=== PATIENT | female | born 1995 | race Caucasian/White ===

== ENCOUNTER 2019-10-28 07:12 | Outpatient (CLI) | payer BC, SELFPAY ==
[2019-10-31 23:28] LABS: SARS-CoV-2 RNA Undetected (Undetected); SARS-CoV-2 Specimen Source Nasopharynx
== END 2019-10-28 07:32 ==
PROVIDERS: Visit Provider Internal Medicine
DX: Z20.828 Contact with and (suspected) exposure to other viral communicable diseases (principal)
CPT/HCPCS: U0003

== ENCOUNTER 2020-08-31 13:25 | Outpatient (REF) | payer BC, SELFPAY ==
--- NOTE | 2020-08-31 13:10 | PAPFT_PTH ---
PATIENT: Karime Rust LOC: [facility] U#:[id number] AGE/SX: 25/F ROOM: RE08/31/[address]: JEREMIAS Haywood : 1995 BED: DIS: 08/31/2020 SPEC #: [id number] RECD: 08/31/20 16:31 STATUS: MARISELA REQ #: [id number] RODRIGUEZ: 08/31/20 13:[address]: Sona Luis DEPT: [facility] Cytology RECD BY: Maryann Pendleton ENTERED: 08/31/20 16:32 SP TYPE: PAPFT COMFORT DR: Unknown,Unknown Tissues: 1 - CX/ENDOCX FOR PAP SMEARS Procedures: PAP THIN PREP/UVM Screening Comments: [id number]
[2020-09-03 15:41] LABS: Chlamydia Result Negative (Negative); GC Result Negative (Negative)
== END 2020-08-31 13:26 | disposition home or self-care (01) ==
LOC: LBN 13:25
PROVIDERS: Visit Provider Nurse Practitioner Family
DX: Z11.3 Encounter for screening for infections with a predominantly sexual mode of transmission (principal); Z12.4 Encounter for screening for malignant neoplasm of cervix
CPT/HCPCS: 87491; 87591; 88142

== ENCOUNTER 2020-11-30 20:18 | Outpatient (REF) | payer BC, SELFPAY ==
[2020-12-02 15:39] LABS: COVID-19 RT-PCR UVMMC Result Negative (Negative)
== END 2020-11-30 20:19 | disposition home or self-care (01) ==
LOC: NCHCN 20:18
PROVIDERS: Visit Provider Family Medicine
DX: Z20.822 Contact with and (suspected) exposure to COVID-19 (principal); R06.89 Other abnormalities of breathing
CPT/HCPCS: U0003

== ENCOUNTER 2021-02-03 21:36 | Emergency (ER) | payer BC, SELFPAY ==
[2021-02-03 21:40] VITALS: BP 127/74; PULSE 84; RESP 16; TEMP 36.2; O2SAT 97
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
[2021-02-03 22:27] LABS: *AMPHETAMINES SCREEN URINE Negative (Negative); *BARBITURATES SCREEN URINE Negative (Negative); *BENZODIAZEPINES SCREEN URINE Negative (Negative); Cannabinoids THC Negative (Negative); Cocaine Screen,Urine Negative (Negative); METHADONE URINE SCREEN Negative (Negative); OPIATES URINE SCREEN Negative (Negative)
[2021-02-03 22:28] LABS: Tricyclic Antidepressants Negative (Negative)
[2021-02-03 22:29] LABS: Abs Immature Grans 0.01 10^3/uL (0.0-0.06); Absolute Basophil Count 0.01 10^3/uL (0.0-0.2); Absolute Eosinophil Count 0.04 10^3/uL (0.0-0.7); Absolute Lymphocyte Count 2.46 10^3/uL (1.2-3.4); Absolute Monocyte Count 0.25 10^3/uL (0.1-0.8); Absolute Neutrophil Count 3.32 10^3/uL (1.2-6.7); Basophils % 0.2; Eosinophils % 0.7; HCT 44.3 % (36.0-46.0); HGB 14.7 g/dL (11.2-15.7); Immature Grans % 0.2; Lymphocytes % 40.4; MCH 28.6 pg (27.0-33.0); MCHC 33.2 % (32.0-36.0); MCV 86.2 fL (80-95); MPV 10.2 fL (8.0-11.0); Monocytes % 4.1; Neutrophils % 54.4; Nucleated RBC 0 %; Platelet Count 251 10^3/uL (130-400); RBC 5.14 10^6/uL (3.93-5.22); RDW 11.6 % (11.7-14.6); RDW-SD 36.7 fL; WBC 6.09 10^3/uL (4.4-10.8)
[2021-02-03 22:34] LABS: Source Nasal/Nares
[2021-02-03 22:53] LABS: ALT 22 U/L (14-59); AST 14 U/L (15-37); Alkaline Phosphatase 59 U/L (46-116); Anion Gap 9.6 mmol/L (3-11); BUN 10 mg/dL (7-18); Bilirubin, Total 0.4 mg/dL (0.2-1.0); CO2 26.4 mmol/L (21.0-32.0); CREATININE 0.7 mg/dL (0.55-1.02); Calcium 8.4 mg/dL (8.5-10.1); Chloride 107 mmol/L (98-107); ETHANOL BLOOD 181.1 mg/dL (<10); Glucose 110 mg/dL (74-106); Potassium 3.8 mmol/L (3.5-5.1); Sodium 143 mmol/L (136-145); TSH (W/Ref FT4) 0.61 uIU/mL (0.36-3.74); Total Protein 7.8 g/dL (6.4-8.2)
[2021-02-03 23:00] LABS: Acetaminophen < 2 ug/mL (10-30); Salicylate < 2.8 mg/dL (<2.8)
[2021-02-03 23:14] LABS: COVID-19 PCR Negative (Negative)
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
[2021-02-04] MEDS: QUEtiapine 25 MG TAB PO (00:45)
--- NOTE | 2021-02-04 09:36 | CMSP_ITS ---
- If Service Date Differs Date of service: 02/04/21 Time of Service: 09:36 Care Management Safety Plan Status: Voluntary - Reason for Wait Reason for Wait: Inpatient Admission VOLUNTARY FOR INPATIENT PSYCHIATRIC STABILIZATION. Patient is appropriate in all interactions since arriving at [facility]; Pt has demonstrated appropriate coping and communication skills, has articulated his or her needs and concerns and is fully engaged during staff interactions. Safety plan has been established with patient, and care team, to adhere to patient goals, identify restrictions based on behavioral status, address nut rition, and determine allowed personal belongings, tools for hygiene and personal care. Determine level of activity including ambulation, level of supervision, visitors, and determine privileges based on behaviors and level of engagement by pt. SAFETY PLAN: 1. Will remain on suicide precautions. In Paper Clothes 2. Will remain in room under direct supervision of one-on-one staff at all times provided by CPSO, FRONT END ENGINEER, NEW CAR DRIVER oral and maxillofacial surgeon. 3. May have paper cups, plates, finger foods as well as a cardboard spoon with which to eat meals. 4. Follow [facility] Management of the Admitted Behavioral Health Patient policy. 5. May shower with supervision at RN discretion. 6. No personal belongings. 7. Visitors: Per [facility] Covid Policy and at RN discretion. 8. Activities: Soft cart items, crayons, coloring book, music tablet, television if available, and other activities at RN discretion. 9. Bathroom privileges with escort in the ED; may use bathroom in room on Med/Surg without limitation. 10. Phone: May use hospital phone at RN discretion. 11. Due to VOLUNTARY status, if patient wishes to leave [facility], staff will contact [facility] Crisis Screener ([phone]) and On-Call Port Crane Operator ([phone]) as soon as possible. In the event of elopement, notify [place] [employer] Police ([phone]). Patient is currently voluntarily at [facility] and seeking inpatient admission when a bed becomes available. [facility] Frontline Supervisor Pyrotechnic Loading will continue seeking placement. Please contact the Marine Extension Agent Port Crane Operator ([phone]) and [facility] Supervisor Pyrotechnic Loading ([phone]) for any needed changes in the Safety Plan. Safety plan has been provided to interdepartmental care team.
--- NOTE | 2021-02-04 09:36 | PDOC.CMSAFED ---
- If Service Date Differs Date of service: 02/04/21 Time of Service: 09:36 Care Management Safety Plan Status: Voluntary - Reason for Wait Reason for Wait: Inpatient Admission VOLUNTARY FOR INPATIENT PSYCHIATRIC STABILIZATION. Patient is appropriate in all interactions since arriving at [facility]; Pt has demonstrated appropriate coping and communication skills, has articulated his or her needs and concerns and is fully engaged during staff interactions. Safety plan has been established with patient, and care team, to adhere to patient goals, identify restrictions based on behavioral status, address nutrition, and determine allowed personal belongings, tools for hygiene and personal care. Determine level of activity including ambulation, level of supervision, visitors, and determine privileges based on behaviors and level of engagement by pt. SAFETY PLAN: 1. Will remain on suicide precautions. In Paper Clothes 2. Will remain in room under direct supervision of one-on-one staff at all times provided by [employer]PSO, HEALTHCARE EDUCATOR, ORTHOPEDIC SHOE FITTER senior credit analyst. 3. May have paper cups, plates, finger foods as well as a cardboard spoon with which to eat meals. 4. Follow [facility] Management of the Admitted Behavioral Health Patient policy. 5. May shower with supervision at RN discretion. 6. No personal belongings. 7. Visitors: Per [facility] Covid Policy and at RN discretion. 8. Activities: Soft cart items, crayons, coloring book, music tablet, television if available, and other activities at RN discretion. 9. Bathroom privileges with escort in the ED; may use bathroom in room on Med/Surg without limitation. 10. Phone: May use hospital phone at RN discretion. 11. Due to VOLUNTARY status, if patient wishes to leave [facility], staff will contact [facility] Crisis Screener ([phone]) and On-Call Manuscripts Archivist ([phone]) as soon as possible. In the event of elopement, notify [place] [employer] Police ([phone]). Patient is currently voluntarily at [facility] and seeking inpatient admission when a bed becomes available. [facility] Frontline Herpetology Teacher will continue seeking placement. Please contact the Ply Splicer Manuscripts Archivist ([phone]) and [facility] Herpetology Teacher ([phone]) for any needed changes in the Safety Plan. Safety plan has been provided to interdepartmental care team.
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
[2021-02-04 13:33] VITALS: BP 123/75; PULSE 99; TEMP 37.3; O2SAT 97
[2021-02-04 13:40] VITALS: BP 123/75; PULSE 99; TEMP 37.3; O2SAT 97
== END 2021-02-04 13:37 | disposition other institution (70) ==
PROVIDERS: Physician Assistant; Emergency Provider Physician Assistant
DX: F32.9 Major depressive disorder, single episode, unspecified (principal); R45.851 Suicidal ideations; Z91.52 Personal history of nonsuicidal self-harm; F10.10 Alcohol abuse, uncomplicated
CPT/HCPCS: 36415; 80053; 80307; 81025; 87635; 99285; 80320; 80329; 84443; 85025

== ENCOUNTER 2021-10-17 15:13 | Outpatient (REF) | payer OTHER, BC, SELFPAY ==
[2021-10-17 18:09] LABS: HCT 42.4 % (36.0-46.0); HGB 14.2 g/dL (11.2-15.7); MCH 28.8 pg (27.0-33.0); MCHC 33.5 % (32.0-36.0); MCV 86 fL (80-95); Platelet Count 269 10^3/uL (130-400); RBC 4.93 10^6/uL (3.93-5.22); RDW 11.4 % (11.7-14.6); RDW-SD 35.6 fL
[2021-10-17 18:34] LABS: ALT 26 U/L (14-59); AST 19 U/L (15-37); Albumin 3.9 g/dL (3.4-5.0); Alkaline Phosphatase 65 U/L (46-116); Anion Gap 8.1 mmol/L (3-11); BUN 10 mg/dL (7-18); Bilirubin, Total 0.5 mg/dL (0.2-1.0); CO2 28.9 mmol/L (21.0-32.0); CREATININE 0.7 mg/dL (0.55-1.02); Calcium 8.9 mg/dL (8.5-10.1); Chloride 102 mmol/L (98-107); Glucose 110 mg/dL (74-106); Potassium 4.1 mmol/L (3.5-5.1); Sodium 139 mmol/L (136-145); TSH (W/Ref FT4) 0.91 uIU/mL (0.36-3.74); Total Protein 7.7 g/dL (6.4-8.2)
== END 2021-10-17 15:14 | disposition home or self-care (01) ==
LOC: NCHCN 15:13
PROVIDERS: Visit Provider Nurse Practitioner Family
DX: R53.83 Other fatigue (principal); E61.1 Iron deficiency
CPT/HCPCS: 80053; 85027; 84443

== ENCOUNTER 2023-10-21 16:34 | Outpatient (REF) | payer BC, SELFPAY ==
--- NOTE | 2023-10-21 08:00 | PAPFT_PTH ---
PATIENT: Karime Rust LOC: [facility]#:[id number] AGE/SX: 28/F ROOM: RE10/21/[address]: Alyssa John : 1995 BED: DIS: 10/21/2023 SPEC #: [id number] RECD: 10/21/23 18:27 STATUS: MARISELA CISNEROS #: [id number] RODRIGUEZ: 10/21/23 08:[address]: Alyssa John DEPT: [facility] Cytology RECD BY: Maryann Pendleton Tissues: 1 - CX/ENDOCX FOR PAP SMEARS Procedures: PAP THIN PREP/UVM Screening Comments: [id number] (CHLAMYDIA/GC)
--- OUTSIDE RECORDS SUMMARY | 2023-10-21 16:36 | XMS_ITS | Clinical Summary ---
Author Organization [facility] Address [address] [place] [address] Care Team Providers Care Executive Vp Name Role Phone Unknown, Provider Primary Care Provider Social History Tobacco Use Types Packs/Day Years Used Date Smoking Tobacco: Never Assessed Sex and Gender Information Value Date Recorded Sex Assigned at Not on file Gender Identity Not on file Sexual Orientation Not on file Plan of Treatment Health Maintenance Due Date Last Done Comments Hepatitis C Screen 1995 Hepatitis B Vaccine (1 of 3 - 19+ 3-dose series) 06/14 COVID-19 Vaccine (2022-24 season) 2022 Care Teams Executive Vp Relationship Specialty Start Date End Date Unknown, Provider, PCP - General 10/05/17
--- OUTSIDE RECORDS SUMMARY | 2023-10-21 16:36 | XMS_ITS | Referral Summary ---
Author Organization [facility] Address [address] [place] [id number] Care Team Providers Care Commodity Broker Name Role Phone Unknown, Provider Primary Care Provider Social History Tobacco Use Types Packs/Day Years Used Date Smoking Tobacco: Never Assessed Sex and Gender Information Value Date Recorded Sex Assigned at Not on file Gender Identity Not on file Sexual Orientation Not on file Plan of Treatment Not on file Care Teams Commodity Broker Relationship Specialty Start Date End Date Unknown, Provider, PCP - General 10/05/17
--- OUTSIDE RECORDS SUMMARY | 2023-10-21 16:36 | XMS_ITS | Encounter Summary ---
Author Organization [facility] Address [address] [place] [address] Care Team Providers Care Hat Lining Blocker Name Role Phone Unknown, Provider Primary Care Provider Encounter Details Date Type Department Care Team (Late st Contact Info) Description 12/01/2020 Lab Requisition [facility] Pathology & Laboratory Medicine - [address] [address] Outr Resulting Lab, Provider Social History Tobacco Use Types Packs/Day Years Used Date Smoking Tobacco: Never Assessed Sex and Gender Information Value Date Recorded Sex Assigned at Not on file Gender Identity Not on file Sexual Orientation Not on file documented as of this encounter Plan of Treatment Not on file documented as of this encounter Procedures Procedure Name Priority Date/Time Associated Diagnosis Comments ZZCOVID-19 TEST [facility] PCR Today 11/30/2020 13:40 EDT COVID-19 TESTING Routine 11/30/2020 13:4 0 EDT documented in this encounter Results * COVID-19 TEST [facility] PCR (11/30/2020 13:40 EDT) Swab ENTIRE NASOPHARYNX / Unknown 11/30/2020 13:40 EDT 12/01/2020 21:18 EDT Provider Outr Resulting Lab MICROBIOLOGY - GENERAL ORDERABLES [facility] [address] [place] [address] * COVID-19 TESTING (11/30/2020 13:40 EDT) COVID-19 rt-PCR Result Negative Negative 12/02/2020 15:34 EDT [facility] Comment: This test has not been FDA cleared or approved. This test has been authorized by FDA under an EUA for use by authorized laboratories. This test has been authorized only for detection of nucleic acid from 2019-nCoV, not for any other viruses or pathogens. This test is only authorized for the duration of the declaration that circumstances exist justifying the authorization of emergency use of in vitro diagnostic tests for detection and/or diagnosis of 2019-nCoV under section 564(b)(1) of Act, 21 U.S.C ?? 360bbb-3(b) (1), unless the authorization is terminated or revoked sooner. Negative results do not preclude 2019-nCoV infection and should not be used as the sole basis for treatment or other patient management decisions. Negative results must be combined with clinical observations, patient history, and epidemiological information. This test was developed and its performance characteristics determined by [facility]. It has not been cleared or approved by the US Food and Drug Administration. FDA does not require this test to go through premarket FDA review. This test is used for clinical purposes. It should not be regarded as investigational or for research. This laboratory is certified under the Clinical Laboratory Improvement Amendments (CLIA) as qualified to perform high complexity clinical laboratory testing. This test is based on the CDC COVID-19 Emergency Use Authorization (EUA) assay, with minor modification as defined by the FDA Performed on the [employer]chemy[employer] 7 Pro RT-PCR System. Performing Lab [facility] 12/02/2020 15:34 EDT [facility] Swab 11/30/2020 13:4 0 EDT 12/01/2020 21:18 EDT Provider Outr Resulting Lab MICROBIOLOGY - GENERAL ORDERABLES [facility] [address] [place] [address] documented in this encounter Visit Diagnoses Not on filedocumented in this encounter Care Teams Hat Lining Blocker Relationship Specialty Start Date End Date Unknown, Provider, PCP - General 10/05/17 documented as of this encounter
--- OUTSIDE RECORDS SUMMARY | 2023-10-21 16:36 | XMS_ITS | Encounter Summary ---
Author Organization [facility] Address [address] [place] [address] Care Team Providers Care Metal Stud Framer Name Role Phone Unknown, Provider Primary Care Provider [phone] Encounter Details Date Type Department Care Team (Late st Contact Info) Description 10/05/2017 Results Only [facility] [phone] Sona Luis, [address] [place] [address] Social History Tobacco Use Types Packs/Day Years Used Date Smoking Tobacco: Never Assessed Sex and Gender Information Value Date Recorded Sex Assigned at Not on file Gender Identity Not on file Sexual Orientation Not on file documented as of this encounter Plan of Treatment Not on file documented as of this encounter Procedures Procedure Name Priority Date/Time Associated Diagnosis Comments PAP TEST- RESULT ONLY Routine 10/05/2017 0:00 EDT documented in this encounter Results * PAP TEST- RESULT ONLY (10/05/2017 0:00 EDT) Pathology Report: CYTOPATHOLOGY REPORT Reports generated via electronic interface contain original data; however they are lacking the format of the original report. Caution should be taken when reading/interpreti ng unformatted reports. Name: ? JITENDRA CARDONA ? Accession #: ? [id number] : ? 1995 (Age: 22) ??F ?Collect Date: ? 10/05/2017 Location: ? [facility] ? Receive Date: ? 10/06/2017 Provider: ?SONA LUIS SLIP COVER OPERATOR Copy to: ? Specimen/Source: ?Pap Test, Cervix, ThinPrep Imaging System with manual evaluation Last Menstrual Period: ? 09/07/17 Other: ? First Pap ? SPECIMEN ADEQUACY ? Satisfactory for Evaluation - transformation zone component present GENERAL CATEGORIZATION ? Negative for Intraepithelial Lesion or Malignancy INTERPRETATION ? Shift in cortez present suggestive of bacterial vaginosis. ? Document reviewed and electronically signed by: ? ZACK Paz(ASCP) ? Report Date: ??10/19/2017 12:53 End of Report [facility] 10/05/2017 10/06/2017 Soan Luis SLIP COVER OPERATOR PATHOLOGY ORDERABLES [facility] [address] [place] [address] documented in this encounter Visit Diagnoses Not on filedocumented in this encounter Care Teams Metal Stud Framer Relationship Specialty Start Date End Date Unknown, Provider, PCP - General 10/05/17 documented as of this encounter
--- OUTSIDE RECORDS SUMMARY | 2023-10-21 16:36 | XMS_ITS | Encounter Summary ---
Author Organization [facility] Address [address] [place] [address] Care Team Providers Care Manager Training Name Role Phone Unknown, Provider Primary Care Provider Encounter Details Date Type Department Care Team (Late st Contact Info) Description 09/03/2020 Lab Requisition [facility] Pathology & Laboratory Medicine - [address] [address] Sona Luis, [address] [place] [address] Encounter for other general examination Social History Tobacco Use Types Packs/Day Years Used Date Smoking Tobacco: Never Assessed Sex and Gender Information Value Date Recorded Sex Assigned at Not on file Gender Identity Not on file Sexual Orientation Not on file documented as of this encounter Plan of Treatment Not on file documented as of this encounter Procedures Procedure Name Priority Date/Time Associated Diagnosis Comments PAP TEST Today 08/31/2020 13:10 EDT Encounter for other general examination documented in this encounter Results * PAP TEST (08/31/2020 13:10 EDT) Specimens A. Cervix and/or Endocervix , ThinPrep Imaging System with Manual Evaluation 09/11/2020 13:32 EDT [facility] Specimen Adequacy Satisfactory for Evaluation - transformation zone component present 09/11/2020 13:32 EDT [facility] General Categorization Negative for intraepithelial lesion or malignancy 09/11/2020 13:32 EDT [facility] Attestation . 09/11/2020 13:32 T [facility] at 1331 Clinical History See below 09/12/19 13:32 EDT [facility] Performing Lab [facility] 09/11/2020 13:32 EDT [facility] Scanned Images 09/11/2020 13:32 EDT [facility] Papanicolaou smear specimen (specimen) CERVIX UTERI STRUCTURE / Unknown 08/31/2020 13:10 EDT 09/03/2020 16:19 EDT Sona Luis EDUCATION NURSE PATHOLOGY ORDERABLES [facility] [address] [place] [address] documented in this encounter Visit Diagnoses Diagnosis Encounter for other general examination documented in this encounter Care Teams Manager Training Relationship Specialty Start Date End Date Unknown, Provider, PCP - General 10/05/17 documented as of this encounter
--- OUTSIDE RECORDS SUMMARY | 2023-10-21 16:36 | XMS_ITS | Encounter Summary ---
Author Organization [facility] Address [address] [place] [id number] Care Team Providers Care Supervisor Ore Dressing Name Role Phone Unknown, Provider Primary Care Provider Encounter Details Date Type Department Care Team (Late st Contact Info) Description 08/31/2020 Lab Requisition [facility] Pathology & Laboratory Medicine - [address] [address] Outr Resulting Lab, Provider Social History Tobacco [...] Procedure Name Priority Date/Time Associated Diagnosis Comments CHLAMYDIA/N. GONORRHOEAE AMPLIFIED NUCLEIC ACID Routine 08/31/2020 13:10 EDT documented in this encounter Results * CHLAMYDIA/N. GONORRHOEAE AMPLIFIED RNA (08/31/2020 13:10 EDT) Neisseria gonorrhoeae Result Negative Negative 09/03/2020 15:36 EDT [facility] Chlamydia trachomatis Result Negative Negative 09/03/2020 15:36 EDT [facility] Swab ENTIRE ENDOCERVIX / Unknown 08/31/2020 13:10 EDT 08/31/2020 21:21 EDT Provider Outr Resulting Lab MICROBIOLOGY - GENERAL ORDERABLES [facility] [address] [place] [address] documented in this encounter Visit Diagnoses Not on filedocumented in this encounter Care Teams Supervisor Ore Dressing Relationship Specialty Start Date End Date Unknown, Provider, PCP - General 10/05/17 documented as of this encounter
[2023-10-22 12:45] LABS: Chlamydia Result Negative (Negative); GC Result Negative (Negative)
== END 2023-10-21 16:35 | disposition home or self-care (01) ==
LOC: NCHCN 16:34
PROVIDERS: PCP Nurse Practitioner Family; Visit Provider Nurse Practitioner Family
DX: Z12.4 Encounter for screening for malignant neoplasm of cervix (principal)
CPT/HCPCS: 87491; 87591; 88142

== ENCOUNTER 2024-12-29 09:15 | Outpatient (REF) | payer BC, SELFPAY ==
[2024-12-29 15:45] LABS: HCT 41.9 % (36.0-46.0); HGB 13.9 g/dL (11.2-15.7); MCH 28.5 pg (27.0-33.0); MCHC 33.2 % (32.0-36.0); MCV 86 fL (80-95); MPV 11.0 fL (8.0-11.0); Platelet Count 250 10^3/uL (130-400); RBC 4.87 10^6/uL (3.93-5.22); RDW 11.6 % (11.7-14.6); RDW-SD 36.2 fL; WBC 6.71 10^3/uL (4.4-10.8)
[2024-12-29 16:16] LABS: ALT 24 U/L (14-59); AST 12 U/L (15-37); Albumin 3.8 g/dL (3.4-5.0); Alkaline Phosphatase 51 U/L (46-116); Anion Gap 8.9 mmol/L (3-11); BUN 14 mg/dL (7-18); Bilirubin, Total 0.8 mg/dL (0.2-1.0); CO2 27.1 mmol/L (21.0-32.0); Calcium 8.9 mg/dL (8.5-10.1); Calculated LDL 106 mg/dL (<100); Chloride 103 mmol/L (98-107); Cholesterol 177 mg/dL (<200); Estimated GFR 120.74 (mL/min/1.73m2); Glucose 94 mg/dL (74-106); HDL Cholesterol 58 mg/dL (>or=50); Potassium 4.2 mmol/L (3.5-5.1); Sodium 139 mmol/L (136-145); Total Protein 7.0 g/dL (6.4-8.2); Triglyceride 69 mg/dL (<150)
== END 2024-12-29 09:16 | disposition home or self-care (01) ==
LOC: NCHCN 09:15
PROVIDERS: PCP Nurse Practitioner Family; Visit Provider Nurse Practitioner Family
DX: Z00.00 Encounter for general adult medical examination without abnormal findings (principal)
CPT/HCPCS: 80053; 80061; 85027